=== PATIENT | female | born 1985 | race Caucasian/White ===

== ENCOUNTER 2019-07-11 17:31 | Emergency (ER) | payer MEDICAID, OTHER ==
[~2019-07-11] VITALS: Ht 167.6 cm; Wt 126.4 kg
[~2019-07-11 17:31] MED LIST: ATOR40TA7 PO; BUPR150T8 PO; NABU500T2 PO
[2019-07-11 17:57] VITALS: BP 135/98
[2019-07-11] MEDS ORDERED: ALBU8HFA INH (19:49)
== END 2019-07-11 19:59 | disposition home or self-care (01) ==
LOC: ER 17:32
DX: J06.9 Acute upper respiratory infection, unspecified (principal); E78.00 Pure hypercholesterolemia, unspecified; F32.9 Major depressive disorder, single episode, unspecified; Z98.51 Tubal ligation status; Z98.890 Other specified postprocedural states; Z79.899 Other long term (current) drug therapy
CPT/HCPCS: 71046; 99283